=== PATIENT | female | born 1975 | race Caucasian/White ===

== ENCOUNTER → 2018-02-03 07:38 | Outpatient (CLI) | payer OTHER, SELFPAY ==
--- NOTE | 2018-02-03 09:22 | PM.TREADMILL ---
Cardiac Stress Test Report Referral & Results Date Patient Seen: 02/03/18 Time Patient Seen: 09:23 Requesting provider: Danuta John Indication: Arrhythmia Rest ECG: Unremarkable Procedure Note: Today following both written and verbal informed consent, the patient was exercised according to a standard [facility] protocol. The patient exercised for a total of 11 min 3 sec achieving a maximum heart rate of 200 for. Patient's maximum systolic blood pressure was 140. This was an estimated 12.8 MET's. Patient was quickly tachycardic to heart rate of greater than 130 within the 1st 45 sec but ultimately her peak heart rate was not excessive. Normal blood pressure response No ST segment changes identified No other dysrhythmias identified Functional aerobic impairment rated-20% on the active scale or exercise capacity equal to an active 25-year-old Impression: Somewhat tachycardic response to exercise at least initially No evidence of ischemia Excellent exercise capacity Please note: Actual ECG tracings can be found in the PACS system.
== END ==
PROVIDERS: PCP Internal Medicine Cardiovascular Disease; Visit Provider Physician Assistant Medical
DX: I49.9 Cardiac arrhythmia, unspecified (principal); R00.0 Tachycardia, unspecified
CPT/HCPCS: 93016; 93017; 93018